=== PATIENT | male | born 1930 | race Caucasian/White ===

== ENCOUNTER 2017-08-17 14:29 | Emergency (ER) | payer MEDICARE, BC ==
--- NOTE | 2017-08-17 15:16 | EDM.PDOC ---
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 Seen by Provider: 08/17/17 15:13 Source of Information: Reports: Patient History Limitations: Reports: No Limitations - History of Present Illness INITIAL COMMENTS - FREE TEXT/NARRATIVE: HISTORY AND PHYSICAL: []87-year-old gentleman presents with lower abdominal pain and constipation History of Present Illness: []Patient has noticed for the last 5 days is not had a bowel movement is taken MiraLAX and prunes at home without any relief He states now he has some watery discharge Patient has experienced severe constipation in the past Review of Systems: As per history of present illness and below otherwise all systems reviewed and negative. Past medical history: As per history of present illness and as reviewed below otherwise noncontributory. Surgical history: As per history of present illness and as reviewed below otherwise noncontributory. Social history: No reported history of drug or alcohol abuse. Family history: As per history of present illness and as reviewed below otherwise noncontributory. Physical exam: Very pleasant elderly gentleman who answers questions appropriately in full sentences without any shortness of breath HEENT: Atraumatic, normocehpalic, pupils reactive, negative for conjunctival pallor or scleral icterus, mucous membranes moist, throat clear, neck supple, nontender, trachea midline. Lungs: Clear to auscultation, breath sounds equal bilaterally, chest non tender. Heart: S1S2, regular, negative for clicks, rubs, or JVD. Abdomen: Soft, nondistended, tender to lower abdomen no rebound or guarding. Negative for masses or hepatossplenmegaly. Negative for costovertebral tenderness. Pelvis: Stable nontender. Genitourinary: Deferred. Rectal: Hemorrhoids present that are not inflamed. Brown stool is present in the rectal vault, Hemoccult is positive. Extremities: Atraumatic, negative for cords or calf pain. Neurovascular unremarkable. Neuro: Awake, alert, oriented. Cranial nerves II through XII unremarkable. Cerebellum unremarkable. Motor and sensory unremarkable throughout. Exam nonfocal. Minimal amount of stool expelled with mineral oil enema. The patient was then disimpacted partially. Repeat enema of water. Patient was able to have bowel movements before repeat enema was given. He is feeling better will send him to his home continue with the MiraLAX daily and see his primary care Diagnostics: [] Therapeutics: [Fleets enemas] Impression: [Constipation Hemoccult positive stool] Plan: []Discharged to home MiraLAX daily Follow-up with your primary care provider in 2 days to discuss the constipation with him also the Hemoccult positive stool Definitive disposition and diagnosis as appropriate pending reevaluation and review of above. Onset: Gradual Duration: Day(s): (5) Location: Reports: Abdomen Quality: Reports: Ache, Pressure Severity: Moderate Improves with: Reports: None Worsens with: Reports: None lower abd Pain Score (Numeric/FACES): 5 - Related Data Allergies Allergy/AdvReac Type Severity Reaction Status Date / Time benzalkonium Allergy Other Verified 08/17/17 14:50 ciprofloxacin Allergy Other Verified 08/17/17 14:50 niacin Allergy Other Verified 08/17/17 14:50 [From Niaspan Extended-Release] pilocarpine HCl Allergy Other Verified 08/17/17 14:50 [From Pilocar] sulfadiazine Allergy Other Verified 08/17/17 14:50 Home Meds: Home Meds Acetaminophen [Acetaminophen 8 Hour] 650 mg PO BEDTIME 04/28/15 [History] Alum Hydroxide/Mag Carbonate [Gaviscon] 1 ml PO ASDIRECTED 04/28/15 [History] Aspirin [Adult Low Dose Aspirin EC] 81 mg PO DAILY 04/28/15 [History] Fluticasone Propionate [Flonase Allergy Relief] 15.8 ml NS DAILY 04/28/15 [ History] Levothyroxine 0.5 mg PO DAILY 04/28/15 [History] Omeprazole [Prilosec] 40 mg PO DAILY 04/28/15 [History] Tamsulosin [Tamsulosin 24 Hr] 0.4 mg PO BEDTIME 04/28/15 [History] Past Medical History - Infectious Disease History Infectious Disease History: Reports: Chicken Pox, Shingles - Past Surgical History Other HEENT Surgeries/Procedures: Glaucoma surgery Social & Family History - Family History Family Medical History: Noncontributory - Tobacco Use Smoking Status *Q: Never Smoker - Recreational Drug Use Recreational Drug Use: No ED ROS GENERAL - Review of Systems Review Of Systems: ROS reveals no pertinent complaints other than HPI. ED EXAM, GI/ABD - Physical Exam Exam: See Below (see dictation) Course - Vital Signs Last Recorded V/S: Last Vital Signs Temp 35.3 C 08/17/17 14:50 Pulse 90 08/17/17 14:50 Resp 18 08/17/17 14:50 BP 143/73 H 08/17/17 14:50 Pulse Ox 99 08/17/17 14:50 - Orders/Labs/Meds Orders: Active Orders 24 hr Category Date Time Status Communication Order [RC] STAT Care 08/17/17 16:22 Active Enema [RC] ASDIRECTED Care 08/17/17 15:17 Active Departure - Departure Time of Disposition: 16:35 Disposition: Home, Self-Care 01 Condition: Good Clinical Impression: Constipation Qualifiers: Constipation type: unspecified constipation type Qualified Code(s): K59.00 - Constipation, unspecified - Discharge Information Referrals: PCP,None [Primary Care Provider] - Forms: ED Department Discharge Additional Instructions: The following information is given to patients seen in the emergency department who are being discharged to home. This information is to outline your options for follow-up care. We provide all patients seen in our emergency department with a follow-up referral. The need for follow-up, as well as the timing and circumstances, are variable depending upon the specifics of your emergency department visit. If you don't have a primary care physician on staff, we will provide you with a referral. We always advise you to contact your personal physician following an emergency department visit to inform them of the circumstance of the visit and for follow-up with them and/or the need for any referrals to a consulting specialist. The emergency department will also refer you to a specialist when appropriate. This referral assures that you have the opportunity for followup care with a specialist. All of these measure are taken in an effort to provide you with optimal care, which includes your followup. Under all circumstances we always encourage you to contact your private physician who remains a resource for coordinating your care. When calling for followup care, please make the office aware that this follow-up is from your recent emergency room visit. If for any reason you are refused follow-up, please contact the [facility] emergency department at and asked to speak to the emergency department charge nurse. Continue with the MiraLAX daily as discussed Follow-up with your primary care provider or Dr. Mahajan in the next 2-3 days as discussed - My Orders Last 24 Hours: My Active Orders 08/17/17 15:17 Enema [RC] ASDIRECTED 08/17/17 16:22 Communication Order [RC] STAT - Assessment/Plan Last 24 Hours: My Active Orders 08/17/17 15:17 Enema [RC] ASDIRECTED 08/17/17 16:22 Communication Order [RC] STAT
[2017-08-17 17:35] VITALS: BP 123/79
== END 2017-08-17 16:55 | disposition home or self-care (01) ==
LOC: MW.ED 14:29
DX: K59.00 Constipation, unspecified (principal); R19.5 Other fecal abnormalities; Z79.899 Other long term (current) drug therapy; Z88.1 Allergy status to other antibiotic agents; Z88.2 Allergy status to sulfonamides; Z88.8 Allergy status to other drugs, medicaments and biological substances
CPT/HCPCS: 99284